=== PATIENT | female | born 1970 ===

== ENCOUNTER 2019-03-04 08:41 | Day surgery (SDC) | payer OTHER | END 2019-03-04 13:35 | disposition home or self-care (01) | LOC: AMB-ENDOS 08:41 | DX: R15.9 Full incontinence of feces (principal) ==

== ENCOUNTER 2019-06-30 14:34 | Outpatient (CLI) | payer OTHER | END 2019-06-30 14:37 | disposition home or self-care (01) | LOC: RAD 14:34 | DX: S92.002A Unspecified fracture of left calcaneus, initial encounter for closed fracture (principal) ==